=== PATIENT | male | born 1980 | race African-American/Black ===

== ENCOUNTER 2016-07-23 14:40 | Emergency (ER) | payer MEDICAID ==
[~2016-07-23] VITALS: Ht 182.9 cm; Wt 79.5 kg
[2016-07-23 16:41] VITALS: BP 143/83
[2016-07-23] MEDS ORDERED: IBUPROFEN 600MG TABLET PO ONE (17:30)
== END 2016-07-23 18:32 | disposition home or self-care (01) ==
LOC: ER 15:14
DX: G89.29 Other chronic pain (principal); M25.552 Pain in left hip; M25.551 Pain in right hip; M25.562 Pain in left knee; M25.561 Pain in right knee; R03.0 Elevated blood-pressure reading, without diagnosis of hypertension; Z87.828 Personal history of other (healed) physical injury and trauma
CPT/HCPCS: 99282

== ENCOUNTER 2016-07-27 18:12 | Emergency (ER) | payer MEDICAID ==
[~2016-07-27] VITALS: Ht 182.9 cm; Wt 79.0 kg
[2016-07-27 18:31] VITALS: BP 122/76
== END 2016-07-27 19:30 | disposition home or self-care (01) ==
LOC: ER 19:14
DX: L73.9 Follicular disorder, unspecified (principal); F12.10 Cannabis abuse, uncomplicated
CPT/HCPCS: 99283

== ENCOUNTER 2016-10-14 21:31 | Emergency (ER) | payer MEDICAID ==
[~2016-10-14] VITALS: Ht 182.9 cm; Wt 82.0 kg
[2016-10-14] MEDS ORDERED: IBUPROFEN 600MG TABLET PO ONE (23:45)
[2016-10-15 00:10] VITALS: BP 122/86
== END 2016-10-15 00:52 | disposition home or self-care (01) ==
LOC: ER 23:17
DX: G89.29 Other chronic pain (principal); M54.5 Low back pain; F12.10 Cannabis abuse, uncomplicated
CPT/HCPCS: 99283

== ENCOUNTER 2016-10-26 17:29 | Emergency (ER) | payer MEDICAID ==
[~2016-10-26] VITALS: Ht 182.9 cm; Wt 77.0 kg
[2016-10-26 17:40] VITALS: BP 121/65
[2016-10-26] MEDS ORDERED: KETOROLAC 60MG/2ML VIAL IM ONE (21:15)
[2016-10-26 22:37] LABS: CLARITY URINE CLEAR (CLEAR); COLOR URINE YELLOW (YELLOW); GLUCOSE URINE NEGATIVE (NEGATIVE); KETONES URINE TRACE (NEGATIVE); LEUKOCYTE ESTERASE URINE NEGATIVE (NEGATIVE); NITRITE URINE NEGATIVE (NEGATIVE); OCCULT BLOOD URINE NEGATIVE (NEGATIVE); PH URINE 6.5 (4.5-8.0); PROTEIN URINE NEGATIVE (NEGATIVE); SPECIFIC GRAVITY URINE 1.032 (1.005-1.030)
[2016-10-26] MEDS ORDERED: LIDOCAINE HCL 1% 20ML VIAL (Pyxis) INJ INFIL ONE (23:15)
[2016-10-26] MEDS ORDERED: CEFTRIAXONE SODIUM 250 MG/VIAL IM ONE (23:15)
[2016-10-27] MEDS ORDERED: AZITHROMYCIN 500 MG TABLET PO SCH (09:00)
[2016-10-30 19:08] LABS: CHLAMYDIA TRACHOMATIS NAA Negative (Negative); NEISSERIA GONORRHOEAE NAA Negative (Negative)
== END 2016-10-26 22:45 | disposition home or self-care (01) ==
LOC: ER 21:25
DX: N45.1 Epididymitis (principal); G89.29 Other chronic pain; M25.551 Pain in right hip; M54.5 Low back pain; F12.90 Cannabis use, unspecified, uncomplicated
CPT/HCPCS: 73502; 76870; 81003; 87491; 87591; 93976; 96372; 99285; J0696; J1885; J3490

== ENCOUNTER 2017-08-03 01:32 | Emergency (ER) | payer MEDICAID ==
[~2017-08-03] VITALS: Ht 185.4 cm; Wt 79.0 kg
[2017-08-03 02:17] VITALS: BP 136/90
== END 2017-08-03 05:29 | disposition left against medical advice (07) ==
LOC: ER 01:32
DX: R51 Headache (principal); Z53.21 Procedure and treatment not carried out due to patient leaving prior to being seen by health care provider

== ENCOUNTER 2018-03-11 08:43 | Emergency (ER) | payer MEDICAID ==
[~2018-03-11] VITALS: Ht 182.9 cm; Wt 82.0 kg
[2018-03-11] MEDS ORDERED: CEFTRIAXONE SODIUM 250 MG/VIAL IM ONE (15:15)
[2018-03-11] MEDS ORDERED: LIDOCAINE HCL 1% 20ML VIAL (Pyxis) INJ INFIL ONE (15:15)
[2018-03-11] MEDS ORDERED: AZITHROMYCIN 500 MG TABLET PO ONE (15:15)
[2018-03-11 16:20] VITALS: BP 139/80
== END 2018-03-11 16:56 | disposition home or self-care (01) ==
LOC: ER 09:19
DX: A54.9 Gonococcal infection, unspecified (principal); A74.9 Chlamydial infection, unspecified; M54.9 Dorsalgia, unspecified; F17.200 Nicotine dependence, unspecified, uncomplicated; F12.10 Cannabis abuse, uncomplicated; J45.909 Unspecified asthma, uncomplicated
CPT/HCPCS: 96372; 99283; J0696; J3490

== ENCOUNTER 2019-03-30 11:36 | Emergency (ER) | payer MEDICAID ==
[~2019-03-30] VITALS: Ht 182.9 cm; Wt 78.0 kg
[2019-03-30] MEDS: SODIUM CHLORIDE 0.9% 1,000 ML IV ONE (13:02)
[2019-03-30] MEDS: IPRATROPIUM BROMIDE (0.02%) 0.5MG/2.5ML NEB HHN STA (13:10)
[2019-03-30] MEDS: ALBUTEROL (0.083%) 2.5MG/3ML NEB HHN STA (13:10)
[2019-03-30] MEDS: ONDANSETRON HCL 4MG/2ML INJ IV STA (13:28)
[2019-03-30] MEDS: MAGNESIUM/ALUMINUM HYDROXIDE/SIMETHICONE 30ML UDC PO STA (13:28)
[2019-03-30] MEDS: ASPIRIN 81MG TABLET PO ONE (13:28)
[2019-03-30] MEDS: VISCOUS LIDOCAINE 2% 15 ML UDC PO STA (13:28)
[2019-03-30 13:33] LABS: EOSINOPHILS % 1.6 % (0.0-5.0); HEMATOCRIT. 47.2 % (42.0-52.0); HEMOGLOBIN. 16.2 g/dL (14.0-18.0); LYMPHOCYTES % 25.1 % (20.0-50.0); MEAN CORPUSCULAR HEMOGLOBIN 33.4 pg (28.0-32.0); MEAN CORPUSCULAR VOLUME 97.3 fL (80.0-94.0); MEAN PLATELET VOLUME 11.9 fl (7.4-10.4); MONOCYTES % 12.9 % (2.0-8.0); NEUTROPHILS % 59.4 % (40.0-76.0); PLATELET 169 x1000/uL (130-400); RED BLOOD CELL COUNT 4.85 mill/uL (4.7-6.1); RED CELL DISTRIBUTION WIDTH 13.8 % (11.6-14.6)
[2019-03-30 13:41] LABS: CHLORIDE 106 mEq/L (98-107)
[2019-03-30 14:19] LABS: PLATELET ESTIMATE NORMAL
[2019-03-30 14:35] VITALS: BP 153/84
== END 2019-03-30 15:00 | disposition home or self-care (01) ==
LOC: ER 11:36
DX: I10 Essential (primary) hypertension (principal); K08.89 Other specified disorders of teeth and supporting structures; R06.02 Shortness of breath; R10.13 Epigastric pain; R00.1 Bradycardia, unspecified; I51.7 Cardiomegaly; F12.90 Cannabis use, unspecified, uncomplicated
CPT/HCPCS: 36415; 71045; 80053; 83690; 83880; 84484; 85025; 93005; 94640; 96374; 99284; J2405; J7030; J7611; Z7610